=== PATIENT | female | born 1990 | race Caucasian/White ===

== ENCOUNTER 2018-06-18 12:15 | Emergency (ER) | payer OTHER ==
--- NOTE | 2018-06-18 12:53 | ED Physician Documentation ---
PD HPI URI - Stated complaint Stated Complaint: NAUSEA/VOMITING - Chief complaint Chief Complaint: General - History obtained from History obtained from: Patient - History of Present Illness Timing - onset: How many days ago (has had URI symptoms, sinus congestion and some cough for few days, along with nausea and vomiting. Has developed chest pain anteriorly, hurting with vomiting, and some with breathing.) Timing duration: Days Timing details: Gradual onset, Still present Associated symptoms: Nasal congestion, Sore throat, Dry cough, NVD. No: Fever, Chills, Hemoptysis Contributing factors: No: Sick contact, Travel Review of Systems Constitutional: reports: Fever, Chills, Myalgias Nose: reports: Congestion Cardiac: reports: Chest pain / pressure (anterior with cough and vomiting) Respiratory: reports: Cough GI: reports: Vomiting. denies: Diarrhea Musculoskeletal: denies: Neck pain, Back pain Neurologic: reports: Generalized weakness. denies: Focal weakness, Numbness, Near syncope, Altered mental status, Headache PD PAST MEDICAL HISTORY - Past Medical History Past Medical History: No Cardiovascular: None Respiratory: None Neuro: None Endocrine/Autoimmune: None GI: None PIL[employer]ER: None : None HEENT: None Psych: None Musculoskeletal: None Derm: None - Past Surgical History Past Surgical History: Yes General: Appendectomy - Present Medications Home Medications: Ambulatory Orders Medication Instructions Recorded Confirmed Naproxen 375 mg PO BID #20 tablet 06/18/18 Ondansetron Odt [Zofran] 4 mg TL Q6H PRN #15 tablet 06/18/18 Tramadol HCl 50 mg PO Q6H PRN #15 tablet 06/18/18 - Allergies Allergies/Adverse Reactions: Allergies Allergy/AdvReac Type Severity Reaction Status Date / Time No Known Drug Allergies Allergy Verified 06/18/18 12:35 - Social History Does the pt smoke?: No Smoking Status: Former smoker Does the pt drink ETOH?: Yes Does the pt have substance abuse?: No - Immunizations Immunizations are current?: Yes - POLST Patient has POLST: No PD ED PE NORMAL - Vitals Vital signs reviewed: Yes - General General: Alert and oriented X 3, No acute distress, Well developed/nourished - HEENT HEENT: Pharynx benign - Neck Neck: Supple, no meningeal sign, No adenopathy - Cardiac Cardiac: RRR, No murmur - Respiratory Respiratory: Clear bilaterally, Other (anterior parasternal chest wall tenderness. No crepitance. ) - Abdomen Abdomen: Normal bowel sounds, Soft, Non distended, No organomegaly, Other (some epigastric tenderness) - Back Back: No CVA TTP - Derm Derm: Normal color, Warm and dry - Extremities Extremities: No tenderness to palpate, Normal ROM s pain - Neuro Neuro: Alert and oriented X 3, No motor deficit, Normal speech Results - Vitals Vitals: Oxygen O2 Source Room air - EKG (time done) 12:44 Rate: Rate (enter#) (67) Rhythm: NSR [place]: Normal Intervals: Normal NC QRS: Normal Ischemia: Normal ST segments. No: ST elevation c/w ischemia, ST depression - Rads (name of study) chest xray Radiology: Prelim report reviewed PD MEDICAL DECISION MAKING - ED course Complexity details: reviewed results, considered differential (has had URI symptoms with also nausea and vomiting, then with chest pain that sounds like musculoskeletal chest wall. ), d/w patient Departure - Departure Disposition: 01 Home, Self Care Clinical Impression: Chest pain Qualifiers: Chest pain type: precordial pain Qualified Code(s): R07.2 - Precordial pain Nausea & vomiting Qualifiers: Vomiting type: unspecified Vomiting Intractability: non-intractable Qualified Code(s): R11.2 - Nausea with vomiting, unspecified Condition: Stable Record reviewed to determine appropriate education?: Yes Instructions: ED Strain Chest Wall Follow-Up: RODGER HERNANDEZ [Primary Care Provider] - Prescriptions: Naproxen 375 mg PO BID #20 tablet Ondansetron Odt [Zofran] 4 mg TL Q6H PRN #15 tablet PRN Reason: Nausea / Vomiting Tramadol HCl 50 mg PO Q6H PRN #15 tablet PRN Reason: Pain Comments: I think this is just musculoskeletal pain. Naproxen twice daily for a week. Zofran as needed for nausea and vomiting. Add Tyelnol or Tramadol for pain as needed. Discharge Date/Time: 06/18/18 14:22
[2018-06-18] MEDS ORDERED: IBUPROFEN 600 MG TABLET PO STA (13:11)
[2018-06-18] MEDS ORDERED: ONDANSETRON ODT 4 MG TABLET TL STA (13:11)
--- NOTE | 2018-06-18 13:58 | XRAY Report ---
Reason: chest pain Procedure Date: 06/18/2018 Accession Number: [id number] / [id number] Procedure: XR - Chest 1 View X-Ray CPT Code: 00433 FULL RESULT: EXAM: CHEST RADIOGRAPHY EXAM DATE: 06/18/2018 01:49 PM. CLINICAL HISTORY: Chest Pain. COMPARISON: None. TECHNIQUE: 1 view. FINDINGS: Lungs/Pleura: No focal opacities evident. No pleural effusion. No pneumothorax. Mediastinum: Within exam limitations, the cardiomediastinal contour is normal. Other: None. IMPRESSION: Normal single view chest. [facility]
[2018-06-18 14:00] VITALS: BP 111/72
== END 2018-06-18 14:22 | disposition home or self-care (01) ==
LOC: ED 12:15
DX: Z87.891 Personal history of nicotine dependence (principal); R07.2 Precordial pain; R11.2 Nausea with vomiting, unspecified
CPT/HCPCS: 71045; 93005; 99283; A9270; Q0162